=== PATIENT | male | born 1995 | race American Indian/Alaskan Native ===

== ENCOUNTER 2019-11-09 14:02 | Emergency (ER) | payer SELFPAY ==
[2019-11-09 14:24] VITALS: BP 151/91
--- NOTE | 2019-11-09 15:50 | Emergency Department Report ---
Chief Complaint: Sore Throat Stated Complaint: SORE THROAT Time Seen by Provider: 11/09/19 15:44 - HPI History of Present Illness: 23 y/o male comes in for sore throat times 1 week. Has been taking Muceinex which helps but returns in the morning. Patient admits to mouth breathing secondary to nasal congestion. - ROS Review of Systems: axo times 3 NAD Non toxic HEENT: oral mucosal moist no exudates mild edematous no swelling throat patent - Exam Vital Signs: Vital Signs 11/09/19 14:22 Temperature 98.0 F Respiratory 16 Rate Blood Pressure 151/91 MSE screening note: Focused history and physical exam performed. Due to findings the following was ordered: 23 y/o male comes in for sore throat times 1 week. Has been taking Muceinex wh ich helps but returns in the morning. Patient admits to mouth breathing secondary to nasal congestion. Recommend over the counter ibuprofen and cephacol and claritin. Follow up at an urgent care on Primary care Provider ED Disposition for [facility] Disposition: MED SCREENING EXAM-LEFT Is pt being admited?: No Does the pt Need Aspirin: No Condition: Stable Additional Instructions: Recommend over the counter ibuprofen and cephacol and claritin. Follow up at an urgent care on Primary care Provider
== END 2019-11-09 17:20 | disposition left against medical advice (07) ==
LOC: ED 14:02
DX: J02.9 Acute pharyngitis, unspecified (principal); Z53.21 Procedure and treatment not carried out due to patient leaving prior to being seen by health care provider

== ENCOUNTER 2020-06-08 12:22 | Emergency (ER) | payer SELFPAY ==
[2020-06-08 13:29] VITALS: BP 157/86
--- NOTE | 2020-06-08 13:37 | Event Note ---
ED Screening Note Date of service: 06/08/20 Time: 13:37 ED Screening Note: 24-year-old male presents for shortness of breath, chills and myalgia resolving x1 week No sick contacts, no travel This initial assessment/diagnostic orders/clinical plan/treatment(s) is/are subject to change based on patients health status, clinical progression and re- assessment by fellow clinical providers in the ED. Further treatment and workup at subsequent clinical providers discretion. Patient/guardian urged not to elope from the ED as their condition may be serious if not clinically assessed and managed. Initial orders include: cxr
--- NOTE | 2020-06-08 13:57 | XRay Report ---
CHEST PA AND LATERAL VIEWS INDICATION: sob. COMPARISON: None. FINDINGS: Support devices: None. Heart: Within normal limits. Lungs/Pleura: No acute pulmonary or pleural findings. IMPRESSION: 1. No acute findings. Signer Name: Jatin Arvizu MD Signed: 06/08/2020 1:53 PM Workstation Name: [id number]
[2020-06-08 16:10] LABS: Hematocrit 44.4 % (35.5-45.6); Hemoglobin 15.2 gm/dl (11.8-15.2); Mean Corpuscular HGB Conc 34 % (32-34); Mean Corpuscular Volume 86 fl (84-94); Platelet Count 159 K/mm3 (140-440); Red Blood Count 5.14 M/mm3 (3.65-5.03); Red Cell Distribution Width 13.3 % (13.2-15.2)
[2020-06-08 16:44] LABS: Alanine Aminotransferase 18 units/L (7-56); Albumin 4.6 g/dL (3.9-5); BUN/Creatinine Ratio 13; Blood Urea Nitrogen 13 mg/dL (9-20); Calcium 9.7 mg/dL (8.4-10.2); Hemolysis Index 10
--- NOTE | 2020-06-08 18:21 | Emergency Department Report ---
ED General Adult HPI - General Chief complaint: Upper Respiratory Infection Stated complaint: CHEST PAINS SOB Time Seen by Provider: 06/08/20 15:03 Source: patient Mode of arrival: Ambulatory Limitations: No Limitations - History of Present Illness Initial comments: 24-year-old -Russian male smoker with no significant past medical history presents emergency department complaining of a just over 1 week history of cough congestion myalgia chest irritation 1 a substernal region with symptoms appear to be worsening with deep breaths and certain range of motion. He reports no hemoptysis no hematemesis no hematochezia. No wheezing. No palpita tions. No fever, chills, sweats but worried he may have come in contact with an infection of some sort. Also he has been having some issues with lower abdominal pain off and on vaguely as well. He still does tolerate meals still has an appetite no urinary issues. He reports no rashes Radiation: non-radiation Consistency: constant Improves with: none Worsens with: none - Related Data Allergies Allergy/AdvReac Type Severity Reaction Status Date / Time No Known Allergies Allergy Unverified 11/09/19 14:19 ED Review of Systems ROS: Stated complaint: CHEST PAINS SOB Other details as noted in HPI Comment: All other systems reviewed and negative ED Past Medical Hx - Past Medical History Previous Medical History?: No - Surgical History Past Surgical History?: No - Social History Smoking Status: Current Every Day Smoker Substance Use Type: Marijuana ED Physical Exam - General Limitations: No Limitations General appearance: alert, in no apparent distress - Head Head exam: Present: atraumatic, normocephalic - Eye Eye exam: Present: normal appearance, PERRL, EOMI Pupils: Present: normal accommodation - ENT ENT exam: Present: mucous membranes moist, TM's normal bilaterally - Neck Neck exam: Present: normal inspection - Respiratory Respiratory exam: Present: normal lung sounds bilaterally, chest wall tenderness. Absent: respiratory distress, wheezes, rales, rhonchi (Tenderness normal sternal border with palpation) - Cardiovascular Cardiovascular Exam: Present: regular rate, normal rhythm. Absent: systolic murmur, diastolic murmur, rubs, gallop - GI/Abdominal GI/Abdominal exam: Present: soft, normal bowel sounds. Absent: distended, tenderness, guarding, rebound, hyperactive bowel sounds, hypoactive bowel so unds, organomegaly, mass - Rectal Rectal exam: Present: deferred - Extremities Exam Extremities exam: Present: normal inspection, normal capillary refill - Back Exam Back exam: Present: normal inspection - Neurological Exam Neurological exam: Present: alert, oriented X3 - Psychiatric Psychiatric exam: Present: normal affect, normal mood - Skin Skin exam: Present: warm, dry, intact, normal color. Absent: rash ED Course Vital Signs 06/08/20 06/08/20 12:42 13:36 Temperature 98.3 F 98.3 F Pulse Rate 71 Respiratory 20 Rate Blood Pressure 157/86 O2 Sat by Pulse 100 Oximetry ED Medical Decision Making - Lab Data Result diagrams: 06/08/20 15:48 06/08/20 15:48 - Radiology Data Radiology results: report reviewed [facility] [address] [place] [address] XRay Report Signed Patient: TEN PRECIADO MR# : [id number] : 1995 Acct:[id number] Age/Sex: 24 / M ADM Date: 06/08/20 Loc: ED Attending Dr: Ordering Physician: LONNY VASQUEZ Date of Service: 06/08/20 Procedure(s): XR chest routine 2V Accession Number(s): [id number] cc: LONNY VASQUEZ Fluoro Time In Minutes: CHEST PA AND LATERAL VIEWS INDICATION: sob. COMPARISON: None. FINDINGS: Support devices: None. Heart: Within normal limits. Lungs/Pleura: No acute pulmonary or pleural findings. IMPRESSION: 1. No acute findings. Signer Name: Jatin Arvizu MD Signed: 06/08/2020 1:53 PM Workstation Name: [id number] Transcribed By: LEO Dictated By: Jatin Arvizu MD Electronically Authenticated By: Jatin Arvizu MD Signed Date/Time: 06/08/20 135 DD/ 1353 TD/TT: - Medical Decision Making This patient presents with abdominal pain of unclear etiology. Their evaluation has not identified a emergent etiology for the abdominal pain. Specifically, given the very benign exam, normal laboratory studies, and lack of significant risk factors, I have a very low suspicion for appendicitis, ischemic bowel, bowel perforation, or any other life threatening disease. I have discussed with the patient the level of uncertainty with undifferentiated abdominal pain and clearly explained the need to follow-up as noted on the discharge instructions, or return to the Emergency Department immediately if the pain worsens, develops fever, persistent and uncontrollable vomiting, or for any new symptoms or concerns. I discussed with the patient that this presentation today for abdominal pain could represent a significant risk for an acute abdominal pr ocess. Although the tests in the ED were essentially normal, there is still a possibility of a process such as appendicitis, diverticulitis, cholecystitis, ulcer, early bowel obstruction, mesenteric ischemia, kidney stone, or even kidney infection which could subsequently cause disability or . The patient understands that they must return within 24 hours for a recheck or see their physician within 24 hours for re-exam due to the possibility of significant surgical or medical process. This patient presents with chest pain that is very unlikely angina or acute coronary syndrome. The emergency department evaluation has not identified any cause for suspicion that this chest pain has a cardiac etiology. Based on their history, EKG (which showed no evidence of ischemia or infarction) and imaging, in addition to the patient's physical exam, I see no evidence at this time for a malignant etiology for the patient's chest pain. There is no acute evidence for pulmonary embolus, acute myocardial infarction, pneumothorax, Boerhaeve syndrome, cardiac tamponade, thoracic artery dissection, or any other emergent cardiac, pulmonary or aortic pathology. Given the low pre-test probability for c ardiac etiology of chest pain and the absence of any sign of ischemia or infarction, discharge for outpatient follow-up and further evaluation is reasonable. I have explained to the patient that even though a cardiac problem is very unlikely, follow-up and further testing is required to reduce further the already small uncertainty that exists. Other life-threatening diagnoses have been considered. The patient understands the need to return immediately if their symptoms worsen or they develop any new symptoms, and not to engage in any significant exertional activity until follow-up is obtained. Critical care attestation.: If time is entered above; I have spent that time in minutes in the direct care of this critically ill patient, excluding procedure time. ED Disposition Clinical Impression: Musculoskeletal chest pain Disposition: DC-01 TO HOME OR SELFCARE Is pt being admited?: No Does the pt Need Aspirin: No Condition: Stable Instructions: Chest Pain (ED), Costochondritis (ED), Noncardiac Chest Pain (ED) Additional Instructions: Please be sure to follow-up with the listed provider for further evaluation and treatment options regarding your symptoms Referrals: PRIMARY CARE, [Primary Care Provider] - 3-5 Days [facility] [Provider Group] - 3-5 Days
[2020-06-08 19:20] LABS: Bilirubin,Urine NEG (Negative); Blood,Urine NEG (Negative); Color,Urine Straw (Yellow); Mucus,Urine FEW /HPF; Protein,Urine <15 mg/dL mg/dL (Negative); Urobilinogen,Urine < 2.0 mg/dL (<2.0)
== END 2020-06-08 18:32 | disposition home or self-care (01) ==
LOC: ED 12:22
DX: R07.89 Other chest pain (principal); F12.90 Cannabis use, unspecified, uncomplicated; F17.200 Nicotine dependence, unspecified, uncomplicated; Z79.899 Other long term (current) drug therapy
CPT/HCPCS: 36415; 71046; 80053; 81001; 85027

== ENCOUNTER 2020-07-08 10:13 | Emergency (ER) | payer SELFPAY ==
--- NOTE | 2020-07-08 11:01 | Emergency Department Report ---
Chief Complaint: Urogenital-Male Stated Complaint: PELVIC PAIN - HPI History of Present Illness: 24 y/o male comes in reporting that he has penile discharge intermittently for 1 month. Denies any N/V no F/C. - ROS Review of Systems: axo times 3 NAD nontoxic in appearance ambulatory without difficulties. - Exam Vital Signs: Vital Signs 07/08/20 10:16 Respiratory 17 Rate O2 Sat by Pulse 100 Oximetry MSE screening note: Focused history and physical exam performed. Due to findings the following was ordered: 24 y/o male comes in reporting that he has penile discharge intermittently for 1 month. Denies any N/V no F/C. Discussed with patient that he has stable vital signs and he will best be serves by the health department. ED Disposition for MSE Disposition: MED SCREENING EXAM-LEFT Is pt being admited?: No Does the pt Need Aspirin: No Condition: Stable Referrals: PRIMARY CARE, [Primary Care Provider] - 3-5 Days
[2020-07-08 11:05] VITALS: BP 139/91
== END 2020-07-08 11:56 | disposition left against medical advice (07) ==
LOC: ED 10:13
DX: R36.9 Urethral discharge, unspecified (principal); Z53.21 Procedure and treatment not carried out due to patient leaving prior to being seen by health care provider